=== PATIENT | male | born 1950 | race Caucasian/White ===

== ENCOUNTER 2017-08-27 20:16 | Emergency (ER) | payer MEDICARE, BC ==
--- NOTE | 2017-08-27 20:48 | EDM.PDOC ---
ED HPI GENERAL MEDICAL PROBLEM - General Chief Complaint: Head Injury Stated Complaint: OSWALDO AMB Time Seen by Provider: 08/27/17 20:32 Source of Information: Reports: Patient, Family () History Limitations: Reports: Intoxication - History of Present Illness INITIAL COMMENTS - FREE TEXT/NARRATIVE: Patient is a 66-year-old male presents ED intoxicated alert and oriented 3 complaining of small laceration to the posterior aspect of his head with a contusion. 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 Was walking down the driveway and fell and hit his head and ended up in the roadway. A passing vehicle found the patient laying on the ground bleeding thus prompted calling 911 with transport to the ED by ambulance. states patient's been repeating himself repeating multiple times that he is fine that would heal on its own accord. Request Steri-Strips be placed to the back of the head. is concerned that he may have suffered a concussion. Patient denies any headache, vision changes, nausea/vomiting, neck pain, chest pain, shortness breath, dizziness, palpitations, abdominal pain, numbness/ tingling to his extremities, weakness, or any additional complaints. Tetanus status is not up-to-date but the patient refuses update. - Related Data Allergies Allergy/AdvReac Type Severity Reaction Status Date / Time Penicillins Allergy Cannot Verified 08/27/17 20:28 Remember Home Meds: Home Meds . 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" Oncologic (Cancer) History: Reports: Other (See Below) Other Oncologic History: "salivary gland cancer removed" - Past Surgical History HEENT Surgical History: Reports: Tonsillectomy Other Musculoskeletal Surgeries/Procedures:: Leg surgery Social & Family History - Family History Family Medical History: Noncontributory - Tobacco Use Smoking Status *Q: Never Smoker - Alcohol Use Days Per Week of Alcohol Use: 7 Number of Drinks Per Day: 2 Total Drinks Per Week: 14 - Recreational Drug Use Recreational Drug Use: No ED ROS GENERAL - Review of Systems Review Of Systems: ROS reveals no pertinent complaints other than HPI. ED EXAM, HEAD INJURY - Physical Exam Exam: See Below Exam Limited By: Intoxication General Appearance: Alert, WD/WN, No Apparent Distress Head: Scalp Lacerations (Left posterior), Scalp Hematoma (Left posterior), Scalp Tenderness (Left posterior), Active Bleeding (Minimal left posterior), Other (5cm jagged laceration, deep with bleeding present. 1 cm deep linear laceration present. ). No: Hudson's Sign, Facial Abrasions, Facial Ecchymosis, Facial Lacerations, Facial Swelling, Facial Tenderness, Raccoon Eyes Nexus Criteria: Evidence of Intoxication. No: Posterior, Midline Cervical Tenderness, Altered Level of Consciousness, Focal Neurological Deficit, Painful Distraction Injuries Eyes: Bilateral Eye: EOMI (Horizontal nystagmus present), PERRL Ears: Normal External Exam, Normal Canal, Hearing Grossly Normal Nose: Normal Inspection Throat/Mouth: Normal Inspection, Normal Oropharynx, Normal Voice, No Airway Compromise Neck: Non-Tender, Full Range of Motion, Normal Alignment, Normal Inspection Respiratory: No Respiratory Distress, Lungs Clear, Normal Breath Sounds, No Accessory Muscle Use, Chest Non-Tender Cardiovascular: Normal Peripheral Pulses, Regular Rate, Rhythm, No Murmur GI/Abdominal Exam: Normal Bowel Sounds, Soft, Non-Tender, No Organomegaly, No Distention Back Exam: Normal Inspection, Full Range of Motion. No: Paraspinal Tenderness, Vertebral Tenderness Extremities: Normal Inspection, Normal Range of Motion, Non-Tender, No Pedal Edema, Normal Capillary Refill Neurologic: office helper II-XII nml As Tested, No Motor/Sensory Deficits, Alert, Normal Mood/Affect, Oriented x 3 Skin: Normal Color, Warm/Dry ED LACERATION/WOUND & NISHANT PROC - Laceration/Wound Repair Left Head Lac/wound length in cm: 5 Appearance: Subcutaneous, Irregular, Clean Distal NVT: Neuro & Vascular Intact Local Anesthesia - Lidocaine (Xylocaine): 1% with EPI Local Anesthetic Volume: 5cc Skin Prep: Chlorhexidine (Hibiciens), Saline, Sterile Drape Exploration/Debridement/Repair: Wound Explored, Explored to Base, No Foreign Material Found, Multiple Flaps Aligned Closed with: Florina # of Sutures: 10 Sterile Dressing Applied: None Tetanus Status Addressed: Yes Complications: No Left Posterior Head Lac/wound length in cm: 1 Appearance: Subcutaneous, Clean Distal NVT: Neuro & Vascular Intact Local Anesthesia - Lidocaine (Xylocaine): 1% with EPI Local Anesthetic Volume: 2cc Skin Prep: Chlorhexidine (Hibiciens), Saline, Sterile Drape Exploration/Debridement/Repair: Wound Explored, In a Bloodless Field, Explored to Base, No Foreign Material Found Closed with: Florina # of Sutures: 3 Sterile Dressing Applied: None Tetanus Status Addressed: Yes Complications: No Course - Vital Signs Last Recorded V/S: Last Vital Signs Temp 98.7 F 08/27/17 20:23 Pulse 80 08/27/17 20:23 Resp 16 08/27/17 20:23 BP 169/107 H 08/27/17 20:23 Pulse Ox 100 08/27/17 20:23 - Orders/Labs/Meds Orders: Active Orders 24 hr Category Date Time Status Cervical Spine wo Cont [CT] Stat Exams 08/27/17 20:43 Taken Head wo Cont [CT] Stat Exams 08/27/17 20:43 Taken Meds: Medications Discontinued Medications Generic Name Dose Route Start Last Admin Trade Name Kikeq PRN Reason Stop Dose Admin Lidocaine/Epinephrine 40 ml 08/27/17 21:31 Xylocaine 1% With Epinephrine 1:100,000 INJECT 08/27/17 21:32 ONETIME ONE - Re-Assessments/Exams Free Text/Narrative Re-Assessment/Exam: Ordered CT of the head and cervical spine with being intoxicated. No additional testing will be obtained. He has no previous past medical history. Dr. Arnett did speak with the patient as well and agrees with plan. CT head and also [place] spine did not reveal any acute findings. 2 lacerations noted to the posterior aspect of the head with in close proximity. Closed with florina with medications. Patient has remained alert and oriented 3 with no concerning symptoms. We'll discharge patient home with instructions as documented. Departure - Departure Time of Disposition: 22:04 Disposition: Home, Self-Care 01 Condition: Good Clinical Impression: Concussion with brief LOC Contusion of head Qualifiers: Encounter type: initial encounter Contusion of head detail: scalp Qualified Code(s): S00.03XA - Contusion of scalp, initial encounter Laceration of head Qualifiers: Encounter type: initial encounter Location of open wound of head: scalp Foreign body presence: without foreign body Qualified Code(s): S01.01XA - Laceration without foreign body of scalp, initial encounter Acute alcohol intoxication Qualifiers: Complication of substance-induced condition: uncomplicated Qualified Code(s): F10.929 - Alcohol use, unspecified with intoxication, unspecified - Discharge Information Instructions: Head Injury, Adult, [id number]-Jonk, Facial or Scalp Contusion, Easy -to-Read, Concussion, Adult, [id number], Hematoma, [id number], Post- Concussion Syndrome, [id number] Referrals: PCP,Unknown [Ordering Only Provider] - Forms: ED Department Discharge Additional Instructions: Cleanse site twice daily with soap and water, pat dry, reapply to plan about appointment. Keep area clean and dry. Do not soak wound. Follow-up with a provider at [facility] in [place] to have the florina removed in 10 days. Can apply ice to the affected area as needed throughout the course the day to reduce any swelling and decrease any pain. Can take Tylenol and ibuprofen and alternate fashion for pain. Refrain from any alcohol use x 48-72 hours. should monitor for any changes in mentation or neurological deficits. If you develop the worst headache of your life, vision changes, nausea /vomiting, weakness, paralysis, you must be evaluated in the E.D. immediately. No driving this evening. - My Orders Last 24 Hours: My Active Orders 08/27/17 20:43 Cervical Spine wo Cont [CT] Stat Head wo Cont [CT] Stat - Assessment/Plan Last 24 Hours: My Active Orders 08/27/17 20:43 Cervical Spine wo Cont [CT] Stat Head wo Cont [CT] Stat
[2017-08-27] MEDS ORDERED: Lidocaine 1% with EPINEPHrine 1:100,000 20 ML MDV INJECT ONE (21:31)
--- NOTE | 2017-08-28 07:21 | CT ---
Head CT Technique: Multiple axial sections through the brain were obtained. Intravenous contrast was not utilized. Findings: Ventricles along with basal cisterns and sulci over the convexities are mildly prominent. Minimal areas of diminished density are scattered within the periventricular white matter compatible with small vessel ischemic demyelination change. No other abnormal parenchymal densities are seen. No evidence of intracranial hemorrhage. No midline shift or mass effect is seen. Soft tissue hematoma is seen within the upper posterior left scalp. Soft tissue air noted within this hematoma compatible with skin injury. No acute calvarial abnormality is identified. Visualized sinuses are clear. Impression: 1. Soft tissue hematoma within the upper left posterior scalp with soft tissue air compatible with skin injury. 2. Mild senescent change with no acute intracranial abnormality being seen. No skull fracture is identified. Diagnostic code #2 I agree with preliminary report issued by [employer] ([facility] preliminary report dictated on 08/27/17, 10:37 PM Central Time)
--- NOTE | 2017-08-28 07:55 | CT ---
CT cervical spine Technique: Multiple axial sections were obtained from above C1 inferiorly to the mid T2 level. Reconstructed sagittal and coronal images were reviewed. Comparison: No prior cervical spine imaging. Findings: Middle ear cavities and visualized mastoid sinuses are clear. Posterior skull base is intact. Mild disc space narrowing is noted at C4-C5 which contains vacuum phenomena. Severe disc space narrowing is noted at C6-C7. Anterior osteophytes are seen at C5-C6 and more prominent C6-C7. Posterior spurring noted at C4-C5 and C6-C7. Spurring also noted within the uncovertebral joints at C4-C5, C5-C6 and C6-C7. Mild scoliosis is seen. No fracture is identified. Moderate neural foraminal stenosis is noted at C4-C5 on the left side and mild right-sided neural foraminal stenosis noted at C4-C5 on the right side. Mild left-sided neural foraminal stenosis noted at C3-C4. Other neural foramina are patent. No central bony canal stenosis is seen. Impression: 1. Degenerative change as noted above. 2. No acute fracture or abnormal subluxation is seen. Diagnostic code #2 I agree with preliminary report issued by [employer] ([facility] preliminary report dictated on 08/27/17, 10:35 PM Central Time)
== END 2017-08-27 22:12 | disposition home or self-care (01) ==
LOC: JD.ED 20:16
DX: S06.0X9A Concussion with loss of consciousness of unspecified duration, initial encounter (principal); S01.01XA Laceration without foreign body of scalp, initial encounter; F10.120 Alcohol abuse with intoxication, uncomplicated; Z88.0 Allergy status to penicillin; W01.10XA Fall on same level from slipping, tripping and stumbling with subsequent striking against unspecified object, initial encounter
CPT/HCPCS: 12002; 70450; 70450-26; 72125; 72125-26; 99282-25; 99284-25

== ENCOUNTER 2021-03-21 19:02 | Emergency (ER) | payer MEDICARE, BC ==
--- NOTE | 2021-03-21 19:46 | EDM.PDOC ---
ED HPI GENERAL MEDICAL PROBLEM - General Chief Complaint: Respiratory Problem Stated Complaint: SOB Time Seen by Provider: 03/21/21 19:13 Source of Information: Reports: Patient, Family History Limitations: Reports: No Limitations - History of Present Illness INITIAL COMMENTS - FREE TEXT/NARRATIVE: The patient presents with shortness of breath. This started this morning. In M ay he had left rotator cuff surgery at [facility] in [place]. He has been going well and doing physical therapy. He was doing some exercises this morning and then he went up stairs and he was winded. 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 He has no chest pain. He has no fever, chills, cough, abdominal pain, nausea or vomiting. He has no swelling in his legs. He does not smoke. He has no cardiac history and no history of DVT or PE. Onset: Sudden Duration: Hour(s): Severity: Moderate Improves with: Reports: Rest Worsens with: Reports: Movement Context: Reports: Activity Associated Symptoms: Reports: Shortness of Breath. 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 Denies: Cough Cardiovascular: Reports: No Symptoms Endocrine: Reports: No Symptoms GI/Abdominal: Reports: No Symptoms : Reports: No Symptoms Musculoskeletal: Reports: No Symptoms ED EXAM, GENERAL - Physical Exam Exam: See Below Exam Limited By: No Limitations General Appearance: Alert, No Apparent Distress Ears: Normal External Exam Nose: Normal Inspection Head: Atraumatic, Normocephalic Neck: Normal Inspection Respiratory/Chest: No Respiratory Distress, Lungs Clear, Normal Breath Sounds Cardiovascular: Regular Rate, Rhythm, No Edema, No Murmur GI/Abdominal: Soft, Non-Tender, No Organomegaly, No Mass Back Exam: Normal Inspection Extremities: Other (Scar to the left shoulder with no edema, erythema or drainage. No edema in his legs) #1 Interpretation EKG Date: 03/21/21 Time: 19:56 Rhythm: NSR Rate (Beats/Min): 81 Harvey: LAD-Left Harvey Deviation P-Wave: Present QRS: Normal ST-T: Normal QT: Normal Course - Vital Signs Last Recorded V/S: Last Vital Signs Temp 96.6 F L 03/21/21 19:16 Pulse 89 03/21/21 19:16 Resp 18 03/21/21 19:16 BP 145/89 H 03/21/21 19:16 Pulse Ox 95 03/21/21 19:16 - Orders/Labs/Meds Orders: Active Orders 24 hr Category Date Time Status Cardiac Monitoring [RC] . DIRECTED Care 03/21/21 19:28 Active EKG Documentation Completion [RC] STAT Care 03/21/21 19:29 Active Peripheral IV Care [RC] . DIRECTED Care 03/21/21 20:23 Active Ang Chest [CT] Stat Exams 03/21/21 20:23 Taken Apixaban [Eliquis] Med 03/21/21 22:15 Once 10 mg PO ONETIME ONE Sodium Chloride 0.9% [Normal Saline] 100 ml Med 03/21/21 21:00 Active IV ASDIRECTED Sodium Chloride 0.9% [Saline Flush] Med 03/21/21 21:00 Active 10 ml FLUSH ASDIRECTED Sodium Chloride 0.9% [Saline Flush] Med 03/21/21 20:23 Active 10 ml FLUSH ASDIRECTED PRN Peripheral IV Insertion Adult [OM.PC] Routine Oth 03/21/21 20:23 Ordered Medication Orders Sodium Chloride (Normal Saline) 100 mls @ 60 mls/hr IV ASDIRECTED [facility] Last Admin: 03/21/21 21:06 Dose: 60 mls/hr Documented by: MARY Sodium Chloride (Sodium Chloride 0.9% 10 Ml Syringe) 10 ml FLUSH ASDIRECTED PRN PRN Reason: Keep Vein Open Last Admin: 03/21/21 21:06 Dose: 10 ml Documented by: ROSSCGRClyde Admin: 03/21/21 20:32 Dose: 10 ml Documented by: GERI Sodium Chloride (Sodium Chloride 0.9% 10 Ml Syringe) 10 ml FLUSH ASDIRECTED DEANNA Labs: Laboratory Tests 03/21/21 03/21/21 03/21/21 Range/Units 19:42 19:42 19:42 WBC 8.39 (4.23-9.07) K/mm3 RBC 4.59 L (4.63-6.08) M/mm3 Hgb 14.0 (13.7-17.5) gm/dl Hct 41.7 (40.1-51.0) % MCV 90.8 D (79.0-92.2) fl MCH 30.5 (25.7-32.2) pg MCHC 33.6 (32.2-35.5) g/dl RDW Std Deviation 47.1 H (35.1-43.9) fL Plt Count 212 (163-337) K/mm3 MPV 8.2 L (9.4-12.3) fl Neut % (Auto) 58.9 (34.0-67.9) % Lymph % (Auto) 28.7 (21.8-53.1) % [place] % (Auto) 10.1 (5.3-12.2) % Eos % (Auto) 1.1 (0.8-7.0) Baso % (Auto) 0.7 (0.1-1.2) % Neut # (Auto) 4.94 (1.78-5.38) K/mm3 Lymph # (Auto) 2.41 (1.32-3.57) K/mm3 [place] # (Auto) 0.85 H (0.30-0.82) K/mm3 Eos # (Auto) 0.09 (0.04-0.54) K/mm3 Baso # (Auto) 0.06 (0.01-0.08) K/mm3 D-Dimer, Quantitative 9.87 H (0.19-0.50) mg/L Sodium 139 (136-145) mEq/L Potassium 4.2 (3.5-5.1) mEq/L Chloride 103 (98-107) mEq/L Carbon Dioxide 24 (21-32) mEq/L Anion Gap 16.2 H (5-15) BUN 22 H (7-18) mg/dL Creatinine 1.1 (0.7-1.3) mg/dL Est Cr Clr Drug Dosing 66.21 mL/min Estimated GFR (MDRD) > 60 (>60) mL/min BUN/Creatinine Ratio 20.0 H (14-18) Glucose 96 (70-99) mg/dL Calcium 9.7 (8.5-10.1) mg/dL Total Bilirubin 0.5 (0.2-1.0) mg/dL AST 23 (15-37) U/L ALT 49 (16-63) U/L Alkaline Phosphatase 150 H (46-116) U/L Troponin I 0.038 (0.00-0.056) ng/mL Total Protein 7.7 (6.4-8.2) g/dl Albumin 3.8 (3.4-5.0) g/dl Globulin 3.9 gm/dL Albumin/Globulin Ratio 1.0 (1-2) Meds: Medications Generic Name Dose Route Start Last Admin Trade Name Freq PRN Reason Stop Dose Admin Sodium Chloride 100 mls @ 60 mls/hr 03/21/21 21:00 03/21/21 21:06 Normal Saline IV 60 mls/hr ASDIRECTED DEANNA Administration Sodium Chloride 10 ml 03/21/21 20:23 03/21/21 21:06 Sodium Chloride 0.9% 10 Ml Syringe FLUSH 10 ml ASDIRECTED PRN Administration Keep Vein Open Sodium Chloride 10 ml 03/21/21 21:00 Sodium Chloride 0.9% 10 Ml Syringe FLUSH ASDIRECTED DEANNA Discontinued Medications Generic Name Dose Route Start Last Admin Trade Name Freq PRN Reason Stop Dose Admin Iopamidol 100 ml 03/21/21 20:48 03/21/21 21:05 Iopamidol 755 Mg/Ml 100 Ml Bottle IVPUSH 03/21/21 20:49 100 ml ONETIME ONE Administration - Re-Assessments/Exams Free Text/Narrative Re-Assessment/Exam: 03/21/21 19:46 I ordered an EKG, CXR and labs. 03/21/21 22:16 His EKG shows nothing acute. His CXR looks good. His CBC is negative. His D- dimer is elevated at 9.87. I ordered an IV saline lock and a CT angio of his chest. His anion gap was slightly elevated at 16.2. His troponin is negative. His CT angio of his chest shows acute pulmonary embolism bilaterally with possible mild right ventricular strain. I consulted my hospitalist and we both agreed he did not need to be admitted but needed to be on eliquis. I will give him a dose here and a prescription for more and have him follow up with Dr Norman. Departure - Departure Time of Disposition: 22:20 Disposition: Home, Self-Care 01 Condition: Good Clinical Impression: Pulmonary embolism Qualifiers: Pulmonary embolism type: other Chronicity: acute Acute cor pulmonale presence: without acute cor pulmonale Qualified Code(s): I26.99 - Other pulmonary embolism without acute cor pulmonale - Discharge Information *PRESCRIPTION DRUG MONITORING PROGRAM REVIEWED*: Not Applicable *COPY OF PRESCRIPTION DRUG MONITORING REPORT IN PATIENT SHAHRAM: Not Applicable Prescriptions: Apixaban [Eliquis] 10 mg PO BID #60 tablet Referrals: PCP,None [Primary Care Provider] - Benton Norman MD [Physician] - 1 Week Forms: ED Department Discharge Additional Instructions: Take the eliquis 2 pills 2 times per day for 7 days and then 1 pill 2 times per day after that. Please return if you have more shortness of breath or chest pain. If you fall or are kicked please return to be evaluated. Follow up with Dr Norman. Sepsis Event Note (ED) - Evaluation Sepsis Screening Result: No Definite Risk - Focused Exam Vital Signs: Vital Signs Temp Pulse Resp BP Pulse Ox 03/21/21 19:16 96.6 F L 89 18 145/89 H 95 - My Orders Last 24 Hours: My Active Orders 03/21/21 19:28 Cardiac Monitoring [RC] . DIRECTED 03/21/21 19:29 EKG Documentation Completion [RC] STAT 03/21/21 20:23 Peripheral IV Care [RC] . DIRECTED Ang Chest [CT] Stat Sodium Chloride 0.9% [Saline Flush] 10 ml FLUSH ASDIRECTED PRN Peripheral IV Insertion Adult [OM.PC] Routine 03/21/21 21:00 Sodium Chloride 0.9% [Normal Saline] 100 ml IV ASDIRECTED Sodium Chloride 0.9% [Saline Flush] 10 ml FLUSH ASDIRECTED 03/21/21 22:15 Apixaban [Eliquis] 10 mg PO ONETIME ONE - Assessment/Plan Last 24 Hours: My Active Orders 03/21/21 19:28 Cardiac Monitoring [RC] . DIRECTED 03/21/21 19:29 EKG Documentation Completion [RC] STAT 03/21/21 20:23 Peripheral IV Care [RC] . DIRECTED Ang Chest [CT] Stat Sodium Chloride 0.9% [Saline Flush] 10 ml FLUSH ASDIRECTED PRN Peripheral IV Insertion Adult [OM.PC] Routine 03/21/21 21:00 Sodium Chloride 0.9% [Normal Saline] 100 ml IV ASDIRECTED Sodium Chloride 0.9% [Saline Flush] 10 ml FLUSH ASDIRECTED 03/21/21 22:15 Apixaban [Eliquis] 10 mg PO ONETIME ONE
--- NOTE | 2021-03-21 20:02 | CR ---
Chest: 2 views of the chest were obtained. Comparison: No prior chest imaging is available. Slightly lobulated right hemidiaphragm is seen. Lungs are clear with no acute parenchymal change. Heart size and mediastinum are normal. Prior left shoulder surgery is noted. Mild degenerative change is scattered within the spine. Impression: 1. Findings as noted above. 2. Nothing acute is appreciated on 2 view chest x-ray. Diagnostic code #2
[2021-03-21] MEDS: Sodium Chloride 0.9% 10 ML Syringe FLUSH PRN ×2 (20:32→21:06)
[2021-03-21] MEDS ORDERED: Iopamidol 755 Mg/ML 100 ML Bottle IVPUSH ONE (20:48)
[2021-03-21] MEDS ORDERED: Sodium Chloride 0.9% 100 ML IV SCH (21:00)
[2021-03-21] MEDS ORDERED: Sodium Chloride 0.9% 10 ML Syringe FLUSH SCH (21:00)
[2021-03-21] MEDS ORDERED: Apixaban 5 MG Tab PO ONE (22:15)
--- NOTE | 2021-03-22 08:40 | CT ---
CT chest Technique: Multiple axial sections were obtained through the chest. Intravenous contrast was utilized. Study performed as a pulmonary angiogram protocol. Comparison: Prior chest x-ray performed earlier on the same day (7:45 PM). Findings: Distal right main pulmonary artery thrombus is seen. There is thrombus that extends into the segmental branches of the right upper lung as well as the segmental and subsegmental branches of the right lower lung. Pulmonary emboli are noted within the segmental branches of both upper and lower pulmonary arteries. Lower lobe branch shows extension of thrombus into the subsegmental branches. Visualized upper abdominal structures show nothing acute. Heart size appears slightly prominent. Intervertebral septum is mostly straight suggesting mild overload of the right heart. No pericardial thickening is seen. Lung window settings were reviewed. Minimal density is noted within the left lung base. Lungs otherwise show nothing acute. Bone window settings were reviewed which show mild degenerative change within the spine. No acute osseous abnormality is appreciated. Impression: 1. Fairly extensive pulmonary emboli as described above. Findings suggest mild right heart strain. 2. Slight parenchymal density within the left lung base most likely residual from the pulmonary emboli. 3. No other acute abnormality is appreciated. Diagnostic code #5 I agree with preliminary report from [facility], finalized on 03/21/21, 10:36 PM CDT, code 1
== END 2021-03-21 22:30 | disposition home or self-care (01) ==
LOC: JD.ED 19:02
DX: I26.99 Other pulmonary embolism without acute cor pulmonale (principal); J45.909 Unspecified asthma, uncomplicated; Z88.0 Allergy status to penicillin; Z79.01 Long term (current) use of anticoagulants
CPT/HCPCS: 36415; 71046; 71275; 80053; 84484; 85025; 85379; 93005; 99285; A9270; Q9967; 93010; 99284

== ENCOUNTER 2021-06-09 10:30 | Emergency (ER) | payer MEDICARE, BC ==
[2021-06-09] MEDS ORDERED: methylPREDNISolone Sodium Succinate 125 MG/2 ML SDV IVPUSH PRN (11:23)
[2021-06-09] MEDS ORDERED: diphenhydrAMINE 50 MG/ML SDV IVPUSH PRN (11:23)
[2021-06-09] MEDS ORDERED: Sodium Chloride 0.9% 10 ML Syringe FLUSH PRN (11:23)
[2021-06-09] MEDS ORDERED: Famotidine 20 MG/2 ML SDV IVPUSH PRN (11:23)
[2021-06-09] MEDS ORDERED: EPINEPHrine 1 MG/ML SDV IM PRN (11:23)
--- NOTE | 2021-06-09 11:27 | EDM.PDOC ---
ED HPI GENERAL MEDICAL PROBLEM - General Chief Complaint: Respiratory Problem Stated Complaint: COVID+ Time Seen by Provider: 06/09/21 11:01 Source of Information: Reports: Patient, RN Notes Reviewed History Limitations: Reports: No Limitations - History of Present Illness INITIAL COMMENTS - FREE TEXT/NARRATIVE: Patient is a 70-year-old male who presents to the ER for evaluation of his COVID-19 symptoms. Patient notes that he tested positive last week Saturday. He states that it began with quite an intense cough, fever/chills, body aches but the cough has somewhat waned. He does still feel somewhat short of breath, his O2 sats are stable at about 95 to 96% on room air. Patient states that he is not had much of an appetite, so he does not think he has been getting enough food or fluid. Patient notes a history of pulmonary embolus with surgical removal patient is on Eliquis for this. - Related Data Allergies Allergy/AdvReac Type Severity Reaction Status Date / Time Penicillins Allergy Cannot Verified 06/09/21 10:55 Remember Home Meds: Home Meds Apixaban [Eliquis] 10 mg PO BID #60 tablet 03/21/21 [Rx] Past Medical History Respiratory History: Reports: Asthma, PE Musculoskeletal History: Reports: Fracture Psychiatric History: Reports: Addiction Other Psychiatric History: "Caden haines and chewing tobacco" Oncologic (Cancer) History: Reports: Other (See Below) Other Oncologic History: "salivary gland cancer removed" - Past Surgical History HEENT Surgical History: Reports: Tonsillectomy Other Musculoskeletal Surgeries/Procedures:: Leg surgery Social & Family History - Family History Family Medical History: No Pertinent Family History ED ROS GENERAL - Review of Systems Review Of Systems: Comprehensive ROS is negative, except as noted in HPI. ED EXAM, GENERAL - Physical Exam Exam: See Below Exam Limited By: No Limitations General Appearance: Alert, WD/WN, No Apparent Distress Respiratory/Chest: No Respiratory Distress, Lungs Clear, Normal Breath Sounds, No Accessory Muscle Use, Chest Non-Tender Cardiovascular: Normal Peripheral Pulses, Regular Rate, Rhythm, No Edema GI/Abdominal: Normal Bowel Sounds, Soft, Non-Tender, No Distention, No Mass Extremities: Normal Inspection, Normal Capillary Refill Neurological: Alert, Oriented, Normal Cognition, No Motor/Sensory Deficits Psychiatric: Normal Affect, Normal Mood Skin Exam: Warm, Dry, Intact, Normal Color, No Rash Course - Vital Signs Last Recorded V/S: Last Vital Signs Temp 99.6 F 06/09/21 10:59 Pulse 85 06/09/21 10:59 Resp 14 06/09/21 10:59 BP 130/70 06/09/21 10:59 Pulse Ox 94 L 06/09/21 10:59 - Orders/Labs/Meds Orders: Active Orders 24 hr Category Date Time Status Peripheral IV Care [RC] . DIRECTED Care 06/09/21 11:23 Active Vital Signs [RC] Q15M Care 06/09/21 11:23 Active CBC WITH AUTO DIFF [HEME] Stat Lab 06/09/21 12:35 Received EPINEPHrine [Adrenalin] Med 06/09/21 11:23 Active 0.3 mg IM ONETIME PRN Famotidine [Pepcid] Med 06/09/21 11:23 Active 20 mg IVPUSH ONETIME PRN Sodium Chloride 0.9% [Saline Flush] Med 06/09/21 11:23 Active 10 ml FLUSH ASDIRECTED PRN Sodium Chloride 0.9% [Saline Flush] Med 06/09/21 11:30 Active 30 ml FLUSH ASDIRECTED diphenhydrAMINE [Benadryl] Med 06/09/21 11:23 Active 50 mg IVPUSH ONETIME PRN methylPREDNISolone Sod Succ [Solu-MEDROL] Med 06/09/21 11:23 Active 125 mg IVPUSH ONETIME PRN Peripheral IV Insertion Adult [OM.PC] Routine Oth 06/09/21 11:22 Ordered Medication Orders Diphenhydramine HCl (Diphenhydramine 50 Mg/Ml Sdv) 50 mg IVPUSH ONETIME PRN PRN Reason: hypersensitivity reaction Epinephrine HCl (Epinephrine 1 Mg/Ml Sdv) 0.3 mg IM ONETIME PRN PRN Reason: hypersensitivity reaction Famotidine (Famotidine 20 Mg/2 Ml Sdv) 20 mg IVPUSH ONETIME PRN PRN Reason: hypersensitivity reaction Methylprednisolone Sodium Succinate (Methylprednisolone Sodium Succinate 125 Mg/2 Ml Sdv) 125 mg IVPUSH ONETIME PRN PRN Reason: hypersensitivity reaction Sodium Chloride (Sodium Chloride 0.9% 10 Ml Syringe) 30 ml FLUSH ASDIRECTED DEANNA Sodium Chloride (Sodium Chloride 0.9% 10 Ml Syringe) 10 ml FLUSH ASDIRECTED PRN PRN Reason: Keep Vein Open Labs: Laboratory Tests 06/09/21 06/09/21 06/09/21 Range/Units 12:35 12:35 12:35 WBC 3.47 L (4.23-9.07) K/mm3 RBC 4.77 (4.63-6.08) M/mm3 Hgb 14.5 (13.7-17.5) gm/dl Hct 43.3 (40.1-51.0) % MCV 90.8 (79.0-92.2) fl MCH 30.4 (25.7-32.2) pg MCHC 33.5 (32.2-35.5) g/dl RDW Std Deviation 49.7 H (35.1-43.9) fL Plt Count 118 L D (163-337) K/mm3 MPV 9.5 (9.4-12.3) fl Neut % (Auto) 56.1 (34.0-67.9) % Lymph % (Auto) 32.9 (21.8-53.1) % [place] % (Auto) 10.1 (5.3-12.2) % Eos % (Auto) 0 L (0.8-7.0) Baso % (Auto) 0.6 (0.1-1.2) % Neut # (Auto) 1.95 (1.78-5.38) K/mm3 Lymph # (Auto) 1.14 L (1.32-3.57) K/mm3 [place] # (Auto) 0.35 (0.30-0.82) K/mm3 Eos # (Auto) 0.00 L (0.04-0.54) K/mm3 Baso # (Auto) 0.02 (0.01-0.08) K/mm3 PT 11.4 (9.7-12.0) SECONDS INR 1.03 APTT 34.7 H (21.7-31.4) SECONDS Sodium (136-145) mEq/L Potassium (3.5-5.1) mEq/L Chloride (98-107) mEq/L Carbon Dioxide (21-32) mEq/L Anion Gap (5-15) BUN (7-18) mg/dL Creatinine (0.7-1.3) mg/dL Est Cr Clr Drug Dosing Estimated GFR (MDRD) (>60) mL/min BUN/Creatinine Ratio (14-18) Glucose (70-99) mg/dL Calcium (8.5-10.1) mg/dL Magnesium (1.8-2.4) mg/dL Total Bilirubin (0.2-1.0) mg/dL AST (15-37) U/L ALT (16-63) U/L Alkaline Phosphatase (46-116) U/L C-Reactive Protein 5.5 H* (<1.0) mg/dL Total Protein (6.4-8.2) g/dl Albumin (3.4-5.0) g/dl Globulin gm/dL Albumin/Globulin Ratio (1-2) 06/09/21 Range/Units 12:35 WBC (4.23-9.07) K/mm3 RBC (4.63-6.08) M/mm3 Hgb (13.7-17.5) gm/dl Hct (40.1-51.0) % MCV (79.0-92.2) fl MCH (25.7-32.2) pg MCHC (32.2-35.5) g/dl RDW Std Deviation (35.1-43.9) fL Plt Count (163-337) K/mm3 MPV (9.4-12.3) fl Neut % (Auto) (34.0-67.9) % Lymph % (Auto) (21.8-53.1) % [place] % (Auto) (5.3-12.2) % Eos % (Auto) (0.8-7.0) Baso % (Auto) (0.1-1.2) % Neut # (Auto) (1.78-5.38) K/mm3 Lymph # (Auto) (1.32-3.57) K/mm3 [place] # (Auto) (0.30-0.82) K/mm3 Eos # (Auto) (0.04-0.54) K/mm3 Baso # (Auto) (0.01-0.08) K/mm3 PT (9.7-12.0) SECONDS INR APTT (21.7-31.4) SECONDS Sodium 130 L (136-145) mEq/L Potassium 4.2 (3.5-5.1) mEq/L Chloride 97 L (98-107) mEq/L Carbon Dioxide 21 (21-32) mEq/L Anion Gap 16.2 H (5-15) BUN 17 (7-18) mg/dL Creatinine 1.0 (0.7-1.3) mg/dL Est Cr Clr Drug Dosing TNP Estimated GFR (MDRD) > 60 (>60) mL/min BUN/Creatinine Ratio 17.0 (14-18) Glucose 97 (70-99) mg/dL Calcium 7.9 L D (8.5-10.1) mg/dL Magnesium 1.9 (1.8-2.4) mg/dL Total Bilirubin 0.3 (0.2-1.0) mg/dL AST 42 H (15-37) U/L ALT 15 L (16-63) U/L Alkaline Phosphatase 93 (46-116) U/L C-Reactive Protein (<1.0) mg/dL Total Protein 6.8 (6.4-8.2) g/dl Albumin 3.1 L (3.4-5.0) g/dl Globulin 3.7 gm/dL Albumin/Globulin Ratio 0.8 L (1-2) Meds: Medications Generic Name Dose Route Start Last Admin Trade Name Freq PRN Reason Stop Dose Admin Diphenhydramine HCl 50 mg 06/09/21 11:23 Diphenhydramine 50 Mg/Ml Sdv IVPUSH ONETIME PRN hypersensitivity reaction Epinephrine HCl 0.3 mg 06/09/21 11:23 Epinephrine 1 Mg/Ml Sdv IM ONETIME PRN hypersensitivity reaction Famotidine 20 mg 06/09/21 11:23 Famotidine 20 Mg/2 Ml Sdv IVPUSH ONETIME PRN hypersensitivity reaction Methylprednisolone Sodium Succinate 125 mg 06/09/21 11:23 Methylprednisolone Sodium Succinate 125 Mg/2 Ml Sdv IVPUSH ONETIME PRN hypersensitivity reaction Sodium Chloride 30 ml 06/09/21 11:30 Sodium Chloride 0.9% 10 Ml Syringe FLUSH ASDIRECTED DEANNA Sodium Chloride 10 ml 06/09/21 11:23 Sodium Chloride 0.9% 10 Ml Syringe FLUSH ASDIRECTED PRN Keep Vein Open Discontinued Medications Generic Name Dose Route Start Last Admin Trade Name Freq PRN Reason Stop Dose Admin Bamlanivimab 700 mg/ 160 mls @ 310 mls/hr 06/09/21 12:00 06/09/21 13:37 Etesevimab 1,400 mg/ Sodium IV 06/09/21 12:30 310 mls/hr Chloride ONETIME ONE Administration - Re-Assessments/Exams Free Text/Narrative Re-Assessment/Exam: 06/09/21 11:27 Patient presents to the ER for evaluation of his COVID-19 illness. Patient does meet qualifications for Regeneron therapy, so I have ordered this for the patient we also get some basic labs and a chest x-ray for ongoing management. I spoke with the patient to provide information about Regeneron treatment. I offered them the "Patient and caregiver [facility] Regeneron fact sheet" to read and review. I stated that the drug has been approved by an emergency use authorization (EUA) process and has not been fully FDA reviewed or approved. The patient meets the EUA requirements. I discussed there are other potential treatment options that are currently not FDA approved to treat COVID-19. I did offer an opportunity to ask questions and all questions were answered. The patient voiced understanding and agreed to proceed with the treatment. 06/09/21 13:36 Labs have been reviewed, and everything seems to be consistent with ongoing COVID-19 infection. Patient's chest x-ray also demonstrated no sign of like a Covid pneumonia by any means. The patient states that he had some concerns regarding the Regeneron, or the monoclonal antibody therapy is but I did speak with him, and he does again want to the monoclonal antibody therapy is to be given. Departure - Departure Time of Disposition: 13:39 Disposition: Home, Self-Care 01 Condition: Good Clinical Impression: COVID-19 - Discharge Information *PRESCRIPTION DRUG MONITORING PROGRAM REVIEWED*: No *COPY OF PRESCRIPTION DRUG MONITORING REPORT IN PATIENT SHAHRAM: No Instructions: COVID-19 Frequently Asked Questions, 10 Things You Can Do to Manage Your COVID-19 Symptoms at Home - [facility] (03/24/2021) Referrals: Benton Clark MD [Primary Care Provider] - Forms: ED Department Discharge Additional Instructions: You were seen in the ER today for ongoing and/or worsening respiratory symptoms. Your chest x-ray showed no signs of pneumonia at this time. Your oxygen levels were great at 94-95% on room air. You were given IV monoclonal antibody therapy at today's visit, this medication is thought to work by making you a little less sick, and helps to decrease the length of time that you are sick. Please try to increase your oral fluid intake, and eat multiple small meals throughout the day, to keep yourself healthy. You need to keep yourself nourished in order to fight off this disease. You can try a liquid diet like gatorade/powerade as well to get your electrolytes. You may take 500 mg Tylenol every hours 6 hours for pain/fever relief. Do not exceed 4000 mg Tylenol in a 24-hour time span. However, running a fever is your body's natural response to illness, and it allows the body to develop antibodies to disease, we are recommending trying to limit the use of Tylenol as much as possible to allow your body's natural immune response. Recommend you obtain a pulse oximeter and monitor your oxygen levels at home, you should place the monitor on your finger, and sit in a calm, quiet position for a few minutes and then record the number that is on the screen. If this consistently below 90% on room air without movement, this would be cause for concern to come back to the hospital for further management of your COVID-19 disease. Please follow all guidance set forth from [facility], regarding isolation purposes for your disease process. General isolation times are 10 days from when you started being symptomatic. Sepsis Event Note (ED) - Focused Exam Vital Signs: Vital Signs Temp Pulse Resp BP Pulse Ox 06/09/21 10:59 99.6 F 85 14 130/70 94 L - My Orders Last 24 Hours: My Active Orders 06/09/21 11:22 Peripheral IV Insertion Adult [OM.PC] Routine 06/09/21 11:23 Peripheral IV Care [RC] . DIRECTED Vital Signs [RC] Q15M EPINEPHrine [Adrenalin] 0.3 mg IM ONETIME PRN Famotidine [Pepcid] 20 mg IVPUSH ONETIME PRN Sodium Chloride 0.9% [Saline Flush] 10 ml FLUSH ASDIRECTED PRN diphenhydrAMINE [Benadryl] 50 mg IVPUSH ONETIME PRN methylPREDNISolone Sod Succ [Solu-MEDROL] 125 mg IVPUSH ONETIME PRN 06/09/21 11:30 Sodium Chloride 0.9% [Saline Flush] 30 ml FLUSH ASDIRECTED 06/09/21 12:35 CBC WITH AUTO DIFF [HEME] Stat - Assessment/Plan Last 24 Hours: My Active Orders 06/09/21 11:22 Peripheral IV Insertion Adult [OM.PC] Routine 06/09/21 11:23 Peripheral IV Care [RC] . DIRECTED Vital Signs [RC] Q15M EPINEPHrine [Adrenalin] 0.3 mg IM ONETIME PRN Famotidine [Pepcid] 20 mg IVPUSH ONETIME PRN Sodium Chloride 0.9% [Saline Flush] 10 ml FLUSH ASDIRECTED PRN diphenhydrAMINE [Benadryl] 50 mg IVPUSH ONETIME PRN methylPREDNISolone Sod Succ [Solu-MEDROL] 125 mg IVPUSH ONETIME PRN 06/09/21 11:30 Sodium Chloride 0.9% [Saline Flush] 30 ml FLUSH ASDIRECTED 06/09/21 12:35 CBC WITH AUTO DIFF [HEME] Stat
[2021-06-09] MEDS ORDERED: Sodium Chloride 0.9% 10 ML Syringe FLUSH SCH (11:30)
[2021-06-09] MEDS ORDERED: Bamlanivimab 700 MG, ETESEVIMAB 1,400 MG in Sodium Chloride 0.9% 100 ML IV ONE (12:00)
--- NOTE | 2021-06-09 12:00 | CR ---
Chest: Frontal view of the chest was obtained. Comparison: Prior chest x-ray of 03/21/21. Heart size and mediastinum are within normal limits for technique. Lungs are clear with no acute parenchymal change. Prior left shoulder surgery is noted. Scattered degenerative change is noted within the spine. Impression: 1. Findings as noted above. 2. Nothing acute is appreciated. Diagnostic code #2
== END 2021-06-09 15:02 | disposition home or self-care (01) ==
LOC: JD.ED 10:30
DX: U07.1 COVID-19 (principal); Z88.0 Allergy status to penicillin; Z79.01 Long term (current) use of anticoagulants
CPT/HCPCS: 36415; 71045; 80053; 83735; 85025; 85610; 85730; 86140; 99283; M0245; Q0245

== ENCOUNTER 2022-10-21 10:47 | Emergency (ER) | payer MEDICARE, BC ==
[2022-10-21] MEDS ORDERED: Sodium Chloride 0.9% 10 ML Syringe FLUSH PRN (10:56)
[2022-10-21] MEDS ORDERED: Sodium Chloride 0.9% 1,000 ML IV STA (11:07)
[2022-10-21 11:45] LABS: ESTIMATED GFR 71 mL/min (>60)
== END 2022-10-21 13:19 | disposition home or self-care (01) ==
LOC: JD.ED 10:47
DX: R55 Syncope and collapse (principal); F17.210 Nicotine dependence, cigarettes, uncomplicated; Z88.0 Allergy status to penicillin; Z79.01 Long term (current) use of anticoagulants
CPT/HCPCS: 36415; 80053; 84484; 85025; 86140; 93005; 96360; 99284; J3490; J7030; 93010

== ENCOUNTER 2024-09-18 20:00 | Emergency (ER) | payer MEDICARE ==
[2024-09-18] MEDS ORDERED: Sodium Chloride 0.9% 10 ML Syringe FLUSH PRN (20:12)
[2024-09-18] MEDS: Sodium Chloride 0.9% 500 ML IV STA (20:28)
[2024-09-18 20:38] LABS: BASOPHILS PERCENT AUTO 0.8 % (0.0-1.0); HEMATOCRIT 38.4 % (42.0-52.0); IMMATURE GRAN ABSOLUTE AUTO 0.01 K/mm3 (0.00-0.05); IMMATURE GRAN PERCENT AUTO 0.3 % (0.0-0.4); LYMPHOCYTES PERCENT AUTO 26.1 % (24.0-44.0); MEAN CORPUSCULAR HEMOGLOBIN 32.3 pg (28.0-32.0); MEAN CORPUSCULAR HGB CONC 33.9 g/dl (32.0-36.0); MEAN CORPUSCULAR VOLUME 95.3 fl (83.0-99.0); MEAN PLATELET VOLUME 8.9 fl (9.4-12.4); MONOCYTES ABSOLUTE AUTO 0.7 K/mm3 (0.0-0.8); MONOCYTES PERCENT AUTO 17.8 % (0.0-8.0); NEUTROPHILS ABSOLUTE AUTO 2.1 K/mm3 (1.8-7.7); PLATELET COUNT,PLT 123 K/mm3 (150-400); RED BLOOD CELL COUNT 4.03 M/mm3 (4.52-5.90); WHITE BLOOD CELL COUNT,WBC 3.94 K/mm3 (3.9-11.3)
[2024-09-18 21:03] LABS: A/G RATIO 1.1 (1-2); ALANINE AMINOTRANSFERASE,ALT 47 U/L (16-63); ALBUMIN 3.2 g/dl (3.4-5.0); ALKALINE PHOSPHATASE 96 U/L (46-116); ANION GAP 16.3 (5-15); BILIRUBIN TOTAL 0.4 mg/dL (0.2-1.0); BLOOD UREA NITROGEN,BUN 16 mg/dL (7-18); BUN/CREATININE RATIO 14.5 (14-18); CARBON DIOXIDE,CO2 22 mEq/L (21-32); CHLORIDE,CL 104 mEq/L (98-107); CREATININE 1.1 mg/dL (0.7-1.3); EST CRCL DRUG DOSING (CG) 68.87 mL/min; ESTIMATED GFR 70 mL/min (>60); PROTEIN TOTAL,TP 6.1 g/dl (6.4-8.2); SODIUM,NA 139 mEq/L (136-145); TROPONIN I HIGH SENSITIVITY 6 pg/mL (<=76)
[2024-09-18 21:04] LABS: GLUCOSE RANDOM 156 mg/dL (70-99); POTASSIUM,K 3.3 mEq/L (3.5-5.1)
[2024-09-18] MEDS: Potassium Chloride 20 MEQ Tab.ER PO ONE (21:28)
== END 2024-09-18 21:35 | disposition home or self-care (01) ==
LOC: JD.ED 20:00
DX: R55 Syncope and collapse (principal); J45.909 Unspecified asthma, uncomplicated; Z86.16 Personal history of COVID-19; Z90.89 Acquired absence of other organs; Z88.0 Allergy status to penicillin; Z79.01 Long term (current) use of anticoagulants
CPT/HCPCS: 36415; 80053; 84484; 85025; 93005; 96360; 99284; A9270; J7030; 93010

== ENCOUNTER 2024-10-11 09:03 | Emergency (ER) | payer MEDICARE ==
[2024-10-11] MEDS ORDERED: Sodium Chloride 0.9% 100 ML IV SCH (10:15)
[2024-10-11 10:24] LABS: BASOPHILS ABSOLUTE AUTO 0.1 K/mm3 (0.0-0.2); BASOPHILS PERCENT AUTO 1.1 % (0.0-1.0); EOSINOPHILS ABSOLUTE AUTO 0.1 K/mm3 (0.0-0.4); HEMATOCRIT 45.6 % (42.0-52.0); HEMOGLOBIN 15.2 gm/dl (14.0-18.0); IMMATURE GRAN ABSOLUTE AUTO 0.02 K/mm3 (0.00-0.05); IMMATURE GRAN PERCENT AUTO 0.4 % (0.0-0.4); LYMPHOCYTES ABSOLUTE AUTO 1.7 K/mm3 (1.0-4.8); LYMPHOCYTES PERCENT AUTO 30.8 % (24.0-44.0); MEAN CORPUSCULAR HEMOGLOBIN 31.7 pg (28.0-32.0); MEAN CORPUSCULAR HGB CONC 33.3 g/dl (32.0-36.0); MEAN PLATELET VOLUME 9.2 fl (9.4-12.4); MONOCYTES ABSOLUTE AUTO 0.5 K/mm3 (0.0-0.8); MONOCYTES PERCENT AUTO 8.4 % (0.0-8.0); NEUTROPHILS ABSOLUTE AUTO 3.1 K/mm3 (1.8-7.7); NEUTROPHILS PERCENT AUTO 57.3 % (41.0-71.0); PLATELET COUNT,PLT 200 K/mm3 (150-400); WHITE BLOOD CELL COUNT,WBC 5.46 K/mm3 (3.9-11.3)
[2024-10-11] MEDS: Sodium Chloride 0.9% 500 ML IV ONE (10:24)
[2024-10-11 10:37] LABS: A/G RATIO 1.1 (1-2); ALBUMIN 4.1 g/dl (3.4-5.0); ANION GAP 12.7 (5-15); BILIRUBIN TOTAL 0.5 mg/dL (0.2-1.0); BUN/CREATININE RATIO 17.3 (14-18); CALCIUM 9.3 mg/dL (8.5-10.1); CREATININE 1.1 mg/dL (0.7-1.3); EST CRCL DRUG DOSING (CG) 69.35 mL/min; POTASSIUM,K 4.7 mEq/L (3.5-5.1); PROTEIN TOTAL,TP 7.8 g/dl (6.4-8.2)
[2024-10-11] MEDS: Sodium Chloride 0.9% 10 ML Syringe FLUSH PRN (11:14)
[2024-10-11] MEDS: Iopamidol 612 MG/ML 30 ML SDV IVPUSH ONE (11:14)
== END 2024-10-11 14:03 | disposition home or self-care (01) ==
LOC: JD.ED 09:03
DX: K59.00 Constipation, unspecified (principal); Z86.16 Personal history of COVID-19; Z88.0 Allergy status to penicillin
CPT/HCPCS: 36415; 74177; 80053; 83690; 85025; 93005; 96360; 99284; J7030; Q9967

== ENCOUNTER 2025-05-16 08:53 | Emergency (ER) | payer MEDICARE | END 2025-05-16 10:40 | disposition home or self-care (01) | LOC: JD.ED 08:53 | DX: S46.011A Strain of muscle(s) and tendon(s) of the rotator cuff of right shoulder, initial encounter (principal); Z88.0 Allergy status to penicillin; Z79.01 Long term (current) use of anticoagulants; Z79.899 Other long term (current) drug therapy; Z86.16 Personal history of COVID-19; X50.0XXA Overexertion from strenuous movement or load, initial encounter; Y93.89 Activity, other specified | CPT/HCPCS: 73030-26-RT; 73030-RT; 99283; 99284 ==